=== PATIENT | male | born 1935 | race Caucasian/White ===

== ENCOUNTER 2024-07-03 04:47 | Inpatient (IN) | payer OTHER, SELFPAY ==
[2024-07-02 23:17] VITALS: BP 168/86
[2024-07-03] VITALS (10 sets, daily range): BP systolic 134–180; BP diastolic 71–99; BMI 22.8; BMI 22.5
[2024-07-03 00:13] LABS: % Basophils 0.7 % (0-2); % Eosinophils 3.2 % (0-6); % Immature Granulocytes 0.4 % (0-0.5); % Lymphocytes 14.4 % (20.5-51.1); % Monocytes 8.6 % (1.7-9.3); % Neutrophils 72.7 % (42.2-75.2); Absolute Basophils 0.1 10^3/uL (0-0.2); Absolute Eosinophils 0.3 10^3/uL (0-0.7); Absolute Lymphocytes 1.3 10^3/uL (1.2-3.4); Absolute Monocytes 0.8 10^3/uL (0.1-0.6); Absolute Neutrophils 6.7 10^3/uL (1.4-6.5); Hematocrit 34.1 % (39.0-52.0); Hemoglobin 11.9 g/dL (13.0-18.0); Mean Corp Hgb Conc. 34.9 g/dL (33.0-37.0); Mean Corpuscular Hgb 34.4 pg (27.0-31.0); Mean Corpuscular Volume 98.6 fL (80.0-94.0); Mean Platelet Volume 10.1 fL (7.4-10.4); Nucleated Red Blood Cells % 0 % (-); Platelet Count 146 10^3/uL (130-400); Red Blood Cell Count 3.46 10^6/uL (4.70-6.10); Red Cell Dist. Width 14.4 % (11.5-14.5); White Blood Cell Count 9.2 10^3/uL (4.8-10.8)
[2024-07-03] MEDS: DILAUDID 0.25 MG IV (00:19)
[2024-07-03 00:35] LABS: ALT (SGPT) 17 U/L (0-50); AST (SGOT) 27 U/L (17-59); Albumin 4.5 g/dl (3.5-5.0); Alkaline Phosphatase 67 U/L (38-126); Blood Urea Nitrogen 36 mg/dl (9-20); Calcium 9.4 mg/dl (8.4-10.2); Carbon Dioxide 27 mmol/L (22-30); Chloride 95 mmol/L (98-107); Estimated Creatinine Clearance 11 ml/min; Glucose 116 mg/dl (70-99); Potassium 4.7 mmol/L (3.5-5.1); Sodium 134 mmol/L (135-145); Total Bilirubin 0.7 mg/dl (0.2-1.3); Total Protein 7.5 g/dl (6.3-8.2); eGFR 11.53
[2024-07-03] MEDS: DILAUDID 0.5 MG IV (00:45)
--- NOTE | 2024-07-03 00:50 | ED.GENMED ---
History of Present Illness
<Jody Gonzalez PA-C - Last Filed: 07/03/24 04:29>
General
Chief Complaint: Abdominal Pain
Source: patient
Exam Limitations: none
Time Seen by Provider: 07/02/24 23:50
Nursing documentation reviewed up to this point in time: agreed with
History of Present Illness
History of Present Illness:
89 y/o M
with RLQ pain tender lump x 1.5 days
he has not had any nausea/vomiting/diarrhea, constipation
he has never had hernia before
has h/o afib on eliquis
ESRD on HD MWF
last dialyzed yesterday
no cp, sob
no h/o hernia
no previous abd surgery
Past History
<Jody Gonzalez PA-C - Last Filed: 07/03/24 04:29>
Past History
ED Past Medical History: GERD, HTN, Hypercholesterolemia, Psychiatric and Other (Vertigo)
ED Past Surgical History: Orthopedic and Tonsilectomy
Patient has exhibited threatening behavior?: No
PSI?: No
Social History
Tobacco: Non-smoker
Alcohol: Daily (Wine 1 glass)
Personal:
Living: assisted living
Family History
Family History: CAD
Review of Systems
<Jody Gonzalez PA-C - Last Filed: 07/03/24 04:29>
Review of Systems
Allergies reviewed?: Yes
All Other Systems: Not applicable
Phy Exam
<Jody Gonzalez PA-C - Last Filed: 07/03/24 04:29>
Physical Exam
Physical Exam:
GENERAL: Alert , in no apparent distress
EYE: pupils equal and reactive
NECK: Supple
ENT: o/p clr, mmm.
CARDIAC: Regular rate and rhythm .
LUNGS: Clear breath sounds bilaterally, no acute respiratory distress, no wheezes/rales/rhonchi
ABDOMEN: Mildly distended, firm tender mass/lump in the right lower quadrant feels consistent with a hernia, normal bowel sounds
NEUROLOGICAL: Alert and oriented, no focal neuro deficits
SKIN: Warm and dry, skin intact.
Right upper chest wall permacath
PSYCH: Normal and appropriate interaction.
Course
<Jody oGnzalez PA-C - Last Filed: 07/03/24 04:29>
Orders/Labs/Results
Orders:
Orders
07/02/24 23:19
CMP [Comprehensive Metabolic Panel] Urgent
Complete Blood Count/With Diff Urgent
07/03/24 00:16
HYDROmorphone [Dilaudid] 0.25 mg IV NOW STA
07/03/24 00:36
HYDROmorphone [Dilaudid] 0.5 mg .ROUTE .STK-MED ONE
07/03/24 00:43
CT Abd/Pel (IV only)-DH only Urgent
Comment:
Reason For Exam: RLQ pain with tender lump; dialysis; iv contrast
07/03/24 02:52
HYDROmorphone [Dilaudid] 0.5 mg IV NOW STA
07/03/24 03:19
NG Tube [GI tube insertion- Treatment] ONCE
Abnormal Lab Results
07/03/24
00:01
RBC 3.46 L 10^6/uL
(4.70-6.10)
Hgb 11.9 L g/dL
(13.0-18.0)
Hct 34.1 L %
(39.0-52.0)
MCV 98.6 H fL
(80.0-94.0)
MCH 34.4 H pg
(27.0-31.0)
Absolute Neuts (auto) 6.7 H 10^3/uL
(1.4-6.5)
Absolute Monos (auto) 0.8 H 10^3/uL
(0.1-0.6)
Lymphocytes % 14.4 L %
(20.5-51.1)
Sodium 134 L mmol/L
(135-145)
Chloride 95 L mmol/L
(98-107)
BUN 36 H mg/dl
(9-20)
Creatinine 4.6 H* mg/dL
(0.7-1.3)
Glucose 116 H mg/dl
(70-99)
07/03/24 00:01
07/03/24 00:01
Vital Signs
Initial and Last Documented VS:
Initial Vital Signs
Temp Pulse Resp BP Pulse Ox
36.6 C 72 22 168/86 98
07/02/24 23:17 07/02/24 23:17 07/02/24 23:17 07/02/24 23:17 07/02/24 23:17
Last Documented Vital Signs
Temp Pulse Resp BP Pulse Ox
36.6 C 76 10 180/96 98
07/02/24 23:17 07/03/24 01:30 07/03/24 01:30 07/03/24 00:42 07/03/24 02:45
<Esau Charles MD - Last Filed: 07/03/24 01:39>
Orders/Labs/Results
Orders:
Orders
07/02/24 23:19
CMP [Comprehensive Metabolic Panel] Urgent
Complete Blood Count/With Diff Urgent
07/03/24 00:16
HYDROmorphone [Dilaudid] 0.25 mg IV NOW STA
07/03/24 00:36
HYDROmorphone [Dilaudid] 0.5 mg .ROUTE .STK-MED ONE
07/03/24 00:43
CT Abd/Pel (IV only)-[facility] only Urgent
Comment:
Reason For Exam: RLQ pain with tender lump; dialysis; iv contrast
07/03/24 02:52
HYDROmorphone [Dilaudid] 0.5 mg IV NOW STA
07/03/24 03:19
NG Tube [GI tube insertion- Treatment] ONCE
Abnormal Lab Results
07/03/24
00:01
RBC 3.46 L 10^6/uL
(4.70-6.10)
Hgb 11.9 L g/dL
(13.0-18.0)
Hct 34.1 L %
(39.0-52.0)
MCV 98.6 H fL
(80.0-94.0)
MCH 34.4 H pg
(27.0-31.0)
Absolute Neuts (auto) 6.7 H 10^3/uL
(1.4-6.5)
Absolute Monos (auto) 0.8 H 10^3/uL
(0.1-0.6)
Lymphocytes % 14.4 L %
(20.5-51.1)
Sodium 134 L mmol/L
(135-145)
Chloride 95 L mmol/L
(98-107)
BUN 36 H mg/dl
(9-20)
Creatinine 4.6 H* mg/dL
(0.7-1.3)
Glucose 116 H mg/dl
(70-99)
07/03/24 00:01
07/03/24 00:01
Vital Signs
Initial and Last Documented VS:
Initial Vital Signs
Temp Pulse Resp BP Pulse Ox
36.6 C 72 22 168/86 98
07/02/24 23:17 07/02/24 23:17 07/02/24 23:17 07/02/24 23:17 07/02/24 23:17
Last Documented Vital Signs
Temp Pulse Resp BP Pulse Ox
36.6 C 76 10 180/96 98
07/02/24 23:17 07/03/24 01:30 07/03/24 01:30 07/03/24 00:42 07/03/24 02:45
<Christian Wagner, - Last Filed: 07/03/24 03:36>
Orders/Labs/Results
Orders:
Orders
07/02/24 23:19
CMP [Comprehensive Metabolic Panel] Urgent
Complete Blood Count/With Diff Urgent
07/03/24 00:16
HYDROmorphone [Dilaudid] 0.25 mg IV NOW STA
07/03/24 00:36
HYDROmorphone [Dilaudid] 0.5 mg .ROUTE .STK-MED ONE
07/03/24 00:43
CT Abd/Pel (IV only)-DH only Urgent
Comment:
Reason For Exam: RLQ pain with tender lump; dialysis; iv contrast
07/03/24 02:52
HYDROmorphone [Dilaudid] 0.5 mg IV NOW STA
07/03/24 03:19
NG Tube [GI tube insertion- Treatment] ONCE
Abnormal Lab Results
07/03/24
00:01
RBC 3.46 L 10^6/uL
(4.70-6.10)
Hgb 11.9 L g/dL
(13.0-18.0)
Hct 34.1 L %
(39.0-52.0)
MCV 98.6 H fL
(80.0-94.0)
MCH 34.4 H pg
(27.0-31.0)
Absolute Neuts (auto) 6.7 H 10^3/uL
(1.4-6.5)
Absolute Monos (auto) 0.8 H 10^3/uL
(0.1-0.6)
Lymphocytes % 14.4 L %
(20.5-51.1)
Sodium 134 L mmol/L
(135-145)
Chloride 95 L mmol/L
(98-107)
BUN 36 H mg/dl
(9-20)
Creatinine 4.6 H* mg/dL
(0.7-1.3)
Glucose 116 H mg/dl
(70-99)
07/03/24 00:01
07/03/24 00:01
Vital Signs
Initial and Last Documented VS:
Initial Vital Signs
Temp Pulse Resp BP Pulse Ox
36.6 C 72 22 168/86 98
07/02/24 23:17 07/02/24 23:17 07/02/24 23:17 07/02/24 23:17 07/02/24 23:17
Last Documented Vital Signs
Temp Pulse Resp BP Pulse Ox
36.6 C 76 10 180/96 98
07/02/24 23:17 07/03/24 01:30 07/03/24 01:30 07/03/24 00:42 07/03/24 02:45
Bettylt;Jody Gonzalez PA-C - Last Filed: 07/03/24 04:29>
MDM/Problems Addressed
Differential Diagnosis Includes:
incarceratied hernia, mass, bowel obstruction
MDM/Problems Addressed:
89 y/o M
from [facility]
here iwth rlq pain and mass noticed yesterday
still able to eat/drink
no nausea/vomtiing
pain worse with palptiation
ESRD on HD m/w/f
just got dialyzed thursday
there is a palpable tende rmass in RLQ and distension of the adomen
i attempted reduction x 2 with trendelenburg and after pain meds and was unsuccessful
ct shows bowel contained hernia may be strangulate dwith SBO
[address] wagner did successfully reduce th ehernia
dr hendrix aware
hold off on NGT
admith hospitalist
daughter who is POA is aware
<Jody Gonzalez PA-C - Last Filed: 07/03/24 04:29>
*Critical Care Note
Total Time (30-74mins, 75-104mins- exclusive of procedures): Not Applicable
<Christian Wagner DO - Last Filed: 07/03/24 03:36>
Update Note
Update Note:
Patient seen and examined by me. CT revealed hernia. On my assessment was able to reduce the patient's hernia. Patient then states he feels better. Now resting in a relaxed position. Continue to monitor
ED Attending Note
<Jody Gonzalez PA-C - Last Filed: 07/03/24 04:29>
-
Portions of this chart may have been created with voice recognition software.� Occasional wrong word or��sound alike� substitutions may have occurred due to the inherent limitations of voice recognition software.
<Esau Charles MD - Last Filed: 07/03/24 01:39>
ED Attending Note
Patient seen and examined by attending physician: Yes
I performed the substantive portion of visit, reviewed & personally made and approve the management plan that is documented in note by myself or QIAN.: Yes
ED Attending Note:
Painful mass/bulge right lower quadrant for 36 hours. Some nausea.
On exam tender mass right lower quadrant. Palpates like this likely is a hernia. No respiratory distress. Warm and dry. Perfusing well. Unable to reduce. CT pending.
Discharge Plan
Departure
Patient Disposition: Admit
Date of Disposition: 07/03/24
Time of Disposition: 03:37
Admit to: Med/Surg
Presentation/result/management discussed w/ accepting MD/DO: Hospitalist
Patient with high blood pressure during this ER visit?: No
Condition: Fair
Covid-19: Not Applicable
Discharge Problem:
Abdominal hernia, Small bowel obstruction
Prescriptions:
No Action
albuterol sulfate 2.5 mg /3 mL (0.083 %) Solution For Nebulization
2.5 mg INHALATION Q6H PRN (Reason: SOB)
sennosides-docusate sodium [Colace 2-In-1] 8.6-50 mg Tablet
2 tab-cap PO BID
Foltx 2.5-25-1 mg Tablet
1 tab PO HS
nifedipine [Procardia XL] 60 mg Tablet Extended Release 24hr
60 mg PO DAILY
levetiracetam 250 mg Tablet
250 mg PO Q12H
labetalol 100 mg Tablet
100 mg PO BID
albuterol sulfate 90 mcg/actuation Hfa Aerosol Inhaler
2 puff INHALATION 4XD PRN (Reason: SOB)
cholecalciferol (vitamin D3) 25 mcg (1,000 unit) Tablet
25 mcg PO DAILY
esomeprazole magnesium 20 mg Tablet,Delayed Release (Dr/Ec)
20 mg PO QPM
apixaban 2.5 mg Tablet
2.5 mg PO BID
Referrals:
UNKNOWN - PT DOES,NOT KNOW [Family Provider] -
Interventions
Interventions:
*Risk Screen - Suicide Last Done: 07/02/24 23:17
*General Assessment Last Done: 07/03/24 00:24
*Neglect/Abuse Screening Last Done: 07/02/24 23:17
*ED- Fall Risk Assessment Last Done: 07/03/24 00:24
*ED COVID-19 Vaccine History Last Done: 07/03/24 00:24
BV-Ckgxrj-Hdmsrvxoob Assessment Last Done: 07/03/24 02:45
Discharge Date and Time
Print Language: SOUTH AFR[place]
--- NOTE | 2024-07-03 04:30 | HPS.HSE ---
Family Physician
-
Family Physician: NOT KNOW UNKNOWN - PT DOES
Chief Complaint
-
Abd pain
History of Present Illness
Patient is an 89y M with PMH significant for ESRD on HD, GERD and hypertension who presents to ED complaining of abdominal pain. Patient states that he first noted the pain 24 hours ago and it was mild at that time. It has steadily increased in
the interim and was quite severe this evening prompting evaluation in the ED. Patient reports some nausea and 'belching' but no emesis. He had a normal BM yesterday AM but admits his bowels have been 'slow' recently. He denies any prior h/o
similar symptoms.
In the ED, patient was noted to have evidence of SBO due to R abdominal / Spigelian hernia with contained small bowel. This was successfully reduced in the ED after the CT scan and patient feels clinically improved.
Medical History
Past Medical History
Past Medical History: Reports Other
Additional Past Medical History:
ESRD on HD (M-W-F)
Hypertension
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
Paroxysmal Atrial Fibrillation
Past Surgical History: Reports Other
Additional Past Surgical History:
R IJ Tunneled HD Catheter
Right Knee Arthroscopy
T&A
Social History
Tobacco: Non-smoker
Alcohol: None
Drug: None
Living: Halfway
Family History
Family History: Not pertinent
Allergies / Home Medications
Allergies reflects when Allergies were last updated in [employer].
Home Medications with original date entered in [employer]
Allergy/Medication List:
Allergies
Allergy/AdvReac Type Severity Reaction Status Date / Time
escitalopram Allergy Unknown Verified 07/02/24 23:19
loratadine Allergy Unknown Verified 07/02/24 23:19
omeprazole Allergy Unknown Verified 07/02/24 23:19
pollen extracts Allergy Nasal Verified 07/02/24 23:19
Congestion
sertraline Allergy Unknown Verified 07/02/24 23:19
simvastatin Allergy Unknown Verified 07/02/24 23:19
terazosin Allergy Unknown Verified 07/02/24 23:19
venlafaxine [From Effexor] Allergy Unknown Verified 07/02/24 23:19
Home Medications
albuterol sulfate 2.5 mg/3 mL (0.083 %) solution for nebulization 2.5 mg inhalation Q6H PRN SOB 07/03/24
albuterol sulfate 90 mcg/actuation aerosol inhaler 2 puff inhalation 4XD PRN SOB 07/03/24
apixaban 2.5 mg tablet 2.5 mg PO BID 07/03/24
cholecalciferol (vitamin D3) 25 mcg (1,000 unit) tablet 25 mcg PO DAILY 07/03/24
esomeprazole magnesium 20 mg tablet,delayed release 20 mg PO QPM 07/03/24
folic acid-vit B6-vit B12 2.5 mg-25 mg-1 mg tablet 1 tab PO HS 07/03/24
labetalol 100 mg tablet 100 mg PO BID 07/03/24
levetiracetam 250 mg tablet 250 mg PO Q12H 07/03/24
nifedipine 60 mg tablet,extended release 24 hr (Procardia XL) 60 mg PO DAILY 07/03/24
sennosides 8.6 mg-docusate sodium 50 mg tablet (Colace 2-In-1) 2 tab-cap PO BID 07/03/24
Review of Systems
-
History Source: Patient
A 12 point ROS was completed and negative except as noted: Yes
Constitutional: Denies Fever or Chills
Respiratory: Denies Cough or Trouble Breathing
Cardiac: Denies Chest Pain or Palpitations
Abdomen/GI: Reports Abdominal Pain, Nausea and Constipated; Denies Vomiting, Diarrhea, Bloody Stools or Black Stools
: Denies Flank Pain or Bleeding
Musculoskeletal: Denies Joint Pain or Edema
Neurological: Denies Dizzy or Headache
Physical Exam
Vital Signs
Vital Signs
Temp Pulse Resp BP Pulse Ox
97.8 F 76 10 180/96 98
07/02/24 23:17 07/03/24 01:30 07/03/24 01:30 07/03/24 00:42 07/03/24 02:45
Physical Exam
General: Other (89y m in no acute distress.)
HEENT: Moist mucous membranes
Respiratory: Clear; No Wheezes, Rales or Rhonchi
Cardiac: S1/S2 and Irregular Rhythm; No Murmur
GI: Soft, Non Distended, Normal Bowel Sounds and Other (Mild R sided abdominal tenderness. No appreciable mass / lesion at present. Pos BS,)
Musculoskeletal: No Clubbing, No Cyanosis and No Edema
Neuro: AO x 3
Hematologic/Lymphatic: Other (R IJ HD cath intact. Surrounding area well-appearing.)
Laboratory Results
-
07/03/24 00:01
07/03/24 00:01
Laboratory Results
Total Bilirubin 0.7 mg/dl (0.2-1.3) 07/03/24 00:01
AST 27 U/L (17-59) 07/03/24 00:01
ALT 17 U/L (0-50) 07/03/24 00:01
Alkaline Phosphatase 67 U/L (38-126) 07/03/24 00:01
Impression/Plan
-
A/P: Patient is an 89y M with PMH significant for ESRD on HD, GERD and hypertension who presents to ED for evaluation of abdominal pain x 24 + hours.
Right Abdominal / Spigelian Hernia
SBO secondary to the above
- Admit for further evaluation and treatment.
- Pain / nausea improved after reduction in the ED.
- Monitor overnight for any new / recurrent symptoms.
- Surgery evaluation in the AM for additional recommendations.
- Continue supportive care, pain control / antiemetics, etc if needed.
- Consider NG decompression if recurrent pain, emesis, etc.
ESRD on HD
- Stable. Had usual HD session on Thursday with no issues.
- Next HD due Tuesday 07/04.
- Consult Nephrology if patient remains hospitalized at that time.
Paroxysmal Atrial Fibrillation
- Stable. Hold Eliquis acutely in the event that patient requires any intervention.
Benign Hypertension
- BP moderate elevated in the ED - likely in part due to pain.
- Continue usual home medications with holding parameters.
- Adjust as needed.
- HD per usual schedule.
GERD / Mueller's Esophagus
- Stable. Continue daily PPI.
Seizure Disorder
- Stable. Continue current Keppra dose without changes.
DVT Prophylaxis: SCDs
Code Status: DNR
--- NOTE | 2024-07-03 07:02 | W.PN.HOSP.TC ---
Today's Communication/Plan
-
See plan
Assessment / Plan
Assessment / Plan
Physical Exam
General: Not in acute distress
HEENT: Moist mucous membranes
Respiratory: Clear to Auscultation Bilaterally
Cardiac: S1/S2 and Irregular Rhythm
GI: Soft, Non Distended, Normal Bowel Sounds and Other (Mild right-sided abdominal tenderness. Positive bowel sounds.)
Musculoskeletal: No Cyanosis and No Edema
Neuro: Alert. Awake.
Hematologic/Lymphatic: Other (R IJ HD cath intact. Surrounding area well-appearing.)
Assessment/Plan
Patient is an 89y M with PMH significant for ESRD on HD, GERD and hypertension who presents to ED for evaluation of abdominal pain x 24 + hours.
Right Abdominal / Spigelian Hernia
SBO secondary to the above
- Pain / nausea improved after reduction in the ED.
- Monitor overnight for any new / recurrent symptoms.
- Surgery evaluation for additional recommendations.
- Continue supportive care, pain control / antiemetics, etc if needed.
- Consider NG decompression if recurrent pain, emesis, etc.
ESRD on HD
- Stable. Had usual HD session on Thursday07/01/24 with no issues.
- Next HD due Thursday07/04/24.
- Consult Nephrology if patient remains hospitalized at that time.
Paroxysmal Atrial Fibrillation
- Stable. Hold Eliquis acutely in the event that patient requires any intervention.
Benign Hypertension
- BP moderate elevated in the ED - likely in part due to pain.
- Continue usual home medications with holding parameters.
- Adjust as needed.
- HD per usual schedule.
GERD / Mueller's Esophagus
- Stable. Continue daily PPI.
Seizure Disorder
- Stable. Continue current Keppra dose without changes.
DVT Prophylaxis: SCDs. Subq Heparin while Apixaban is being held.
Code Status: DNR
Anticipated Discharge: 24 - 48 hours
Subjective/Interval History
-
Date of Service: July 03, 2024
Patient was seen and examined. He mentioned that he was feeling great and denied any pain.
Objective Data
-
Labs:
Laboratory Results
07/03/24
00:01
WBC 9.2
Hgb 11.9 L
Hct 34.1 L
Plt Count 146
Sodium 134 L
Potassium 4.7
Chloride 95 L
Carbon Dioxide 27
BUN 36 H
Creatinine 4.6 H*
Glucose 116 H
Calcium 9.4
Total Bilirubin 0.7
AST 27
ALT 17
Alkaline Phosphatase 67
Vital Signs:
Vital Signs
Temp Pulse Resp BP Pulse Ox
97.4 F 71 18 149/86 98
07/03/24 06:30 07/03/24 06:30 07/03/24 06:30 07/03/24 06:30 07/03/24 06:30
[2024-07-03] MEDS: TRANDATE 100 MG PO ×2 (08:36→19:57)
[2024-07-03] MEDS: KEPPRA 250 MG PO ×2 (08:36→19:57)
[2024-07-03] MEDS: PROCARDIA XL (EXTENDED RELEASE) 60 MG PO (08:36)
[2024-07-03] MEDS: PROTONIX 40 MG PO (08:36)
[2024-07-03] MEDS: VITAMIN D3 (cholecalciferol) 25 MCG PO (08:36)
[2024-07-03] MEDS: VENTOLIN NEBULES 2.5 MG INH ×3 (08:55→20:32)
--- NOTE | 2024-07-03 10:57 | CON.GS ---
Addendum entered and electronically signed by Dejan Benitez MD 07/03/24 14:49:
I saw and examined the patient.
The Supervisor Char House's note was reviewed and I agree with the note.
Comment: Improved from last night. RLQ hernia soft and mildly ttp. Alma cld, ADAT to LRD. Advised he needas a bowel regimen. start miralax daily and continue on dc. F/U in the office with Dr benitez to discuss hernia repair
Original Note:
Consultation
-
Date/Time Consultation Requested: 07/03/24614
Requesting Provider: Miles
Performing Provider: Kecia Benitez
Medical History
-
Chief Complaint: abdominal pain
History of Present Illness:
Mr Lux is an 89 yo male with a h/o ESRD on HD, PAF on Eliquis (LD 07/02), and hiatal hernia/GERD who presented through the ED last night with abdominal pain to the right side for the past few days. Proceeding this, he notes he was quite
constipated and was straining to pass hard stools. The pain gradually increased with belching and nausea. He denies vomiting. He presented for evaluation given ongoing pain. On exam, there is a right spigelian hernia present which is small, soft and
reducible although splitter tender. He denies pain, nausea or belching. He has been passing flatus.
Past Medical History
Past Medical History: Arrhythmias (PAF), GERD (salgado's, hiatal hernia) and Renal Failure (ESRD on HD via right IJ tunneled port)
Past Surgical History: Orthopedic (right knee arthroscopy) and Tonsilectomy
Social History
Tobacco: Non-Smoker
Alcohol: None
Living: [facility]
Family History
Family History: Reviewed & Not Pertinent
Allergies / Home Medications
Allergy/AdvReac Type Severity Reaction Status Date / Time
escitalopram Allergy Unknown Verified 07/02/24 23:19
loratadine Allergy Unknown Verified 07/02/24 23:19
omeprazole Allergy Unknown Verified 07/02/24 23:19
pollen extracts Allergy Nasal Verified 07/02/24 23:19
Congestion
sertraline Allergy Unknown Verified 07/02/24 23:19
simvastatin Allergy Unknown Verified 07/02/24 23:19
terazosin Allergy Unknown Verified 07/02/24 23:19
venlafaxine [From Effexor] Allergy Unknown Verified 07/02/24 23:19
�Medication �Instructions �Recorded �Confirmed �Type
albuterol sulfate 2.5 mg/3 mL 2.5 mg inhalation Q6H PRN SOB 07/03/24 07/03/24 History
(0.083 %) solution for nebulization
albuterol sulfate 90 mcg/actuation 2 puff inhalation 4XD PRN SOB 07/03/24 07/03/24 History
aerosol inhaler
apixaban 2.5 mg tablet 2.5 mg PO BID 07/03/24 07/03/24 History
cholecalciferol (vitamin D3) 25 25 mcg PO DAILY 07/03/24 07/03/24 History
mcg (1,000 unit) tablet
esomeprazole magnesium 20 mg 20 mg PO QPM 07/03/24 07/03/24 History
tablet,delayed release
folic acid-vit B6-vit B12 2.5 1 tab PO HS 07/03/24 07/03/24 History
mg-25 mg-1 mg tablet
labetalol 100 mg tablet 100 mg PO BID 07/03/24 07/03/24 History
levetiracetam 250 mg tablet 250 mg PO Q12H 07/03/24 07/03/24 History
nifedipine 60 mg tablet,extended 60 mg PO DAILY 07/03/24 07/03/24 History
release 24 hr (Procardia XL)
sennosides 8.6 mg-docusate sodium 2 tab-cap PO BID 07/03/24 07/03/24 History
50 mg tablet (Colace 2-In-1)
Review of Systems
-
History Source: Patient
All other systems: Negative unless noted
A 10 point review of systems was completed, and was negative except as per HPI.
Physical Exam
Vital Signs
Temp Pulse Resp BP Pulse Ox
98.1 F 84 16 168/90 100
07/03/24 07:20 07/03/24 08:59 07/03/24 08:59 07/03/24 07:20 07/03/24 08:59
07/02/24 07/03/24 07/04/24
06:59 06:59 06:59
Actual Weight 70.987 kg
Body Mass Index (BMI) 22.5
Lab Results
07/03/24 00:01
07/03/24 00:01
WBC 9.2 10^3/uL (4.8-10.8) 07/03/24 00:01
Hgb 11.9 g/dL (13.0-18.0) L 07/03/24 00:01
Hct 34.1 % (39.0-52.0) L 07/03/24 00:01
Plt Count 146 10^3/uL (130-400) 07/03/24 00:01
Abs Immat Gran (auto) 0.0 10^3/uL (0-0.05) 07/03/24 00:01
Neutrophils % 72.7 % (42.2-75.2) 07/03/24 00:01
Physical Exam
General: Well Developed and Well Nourished
HEENT: Moist Mucous Membranes
Respiratory: Non Labored Respirations
GI: Soft, Non Distended and Other (right spigelian hernia which is reducible/soft but tender to deep palpation)
Skin: Warm and Dry
Neuro: Awake
Psych: Calm
Data Reviewed
-
CT Scan: Image Personally Visualized and interpreted, Report Reviewed by me, Discussed with Physician and Discussed with Patient
Labs: Labs Reviewed by me, Discussed with Physician and Discussed with Patient
Old Records: Reviewed
Assessment / Plan
-
Mr Lux is an 89 yo male with a h/o ESRD on HD, PAF on Eliquis (LD 07/02), and hiatal hernia/GERD who presented through the ED last night with progressing abdominal discomfort with belching for the past 2 days. Straining with BM's prior to this
event with new spigelian hernia present. It was able to be reduced in the ED with relief in symptoms and remains soft and reducible although still with some local tenderness to the site. Afebrile, no leukocytosis. Passing flatus.
Plan:
No plans for emergent surgery at this time as hernia was able to be reduced, will follow for continued improvement
Tentative outpatient surgery after recovery from this acute event, although if symptoms recur may need surgery this admission
Start clears and advance to fulls tonight, LRD in AM if tolerating
Bowel regimen to prevent further straining
Continue to hold Eliquis
Will follow
--- NOTE | 2024-07-03 18:15 | PTCARENOTE ---
Patient OOB to chair with assist. Patient tolerated full liquid meal. No c/o pain at present, mild tenderness in abdomen.
[2024-07-03] MEDS: HEPARIN 5000 UNITS SC (19:58)
[2024-07-04] MEDS: VENTOLIN NEBULES 2.5 MG INH ×4 (01:21→19:38)
[2024-07-04 05:33] VITALS: BMI 22.7
--- NOTE | 2024-07-04 06:42 | PTCARENOTE ---
Pt slept well overnight. No issues to report. Pt denies any complaints of abd pain. Pt using urinal as needed. Bed alarm in place. Will continue to monitor.
--- NOTE | 2024-07-04 07:25 | W.PN.HOSP.TC ---
Today's Communication/Plan
-
Surgery on Thursday07/06/24
See plan
Assessment / Plan
Assessment / Plan
Physical Exam
General: Not in acute distress
HEENT: Moist mucous membranes
Respiratory: Clear to Auscultation Bilaterally
Cardiac: S1/S2 and Irregular Rhythm
GI: Soft, Non Distended, Normal Bowel Sounds and Other (Mild right-sided abdominal tenderness. Positive bowel sounds.)
Musculoskeletal: No Cyanosis and No Edema
Neuro: Alert. Awake.
Hematologic/Lymphatic: Other (R IJ HD cath intact. Surrounding area well-appearing.)
Assessment/Plan
Patient is an 89y M with PMH significant for ESRD on HD, GERD and hypertension who presents to ED for evaluation of abdominal pain x 24 + hours.
Right Abdominal / Spigelian Hernia
SBO secondary to the above
- Pain / nausea improved after reduction in the ED.
- Surgery evaluation for additional recommendations.
- Consider NG decompression if recurrent pain, emesis, etc.
- Per Dr. Benitez, patient is added on for surgery on 07/06/24 for hernia repair due to expected difficulty with follow up.
- Okay for Low Residue Diet now, discussed this with Dr. Benitez
- NPO after midnight 07/05-07/06
- Dr. Benitez (surgeon) requested that I consult cardiology for risk stratification for surgery -- cardiology consulted
ESRD on HD
- Stable. Had usual HD session on Thursday07/01/24 with no issues.
- Next HD due Thursday07/04/24.
- Consulted Nephrology for dialysis - dialysis today and first thing in the morning on Thursday07/06/24 prior to surgery
Paroxysmal Atrial Fibrillation
- Stable. Hold Eliquis acutely in the event that patient requires any intervention.
- Cardiology consulted as per surgeon's request as above
Benign Hypertension
- BP moderate elevated in the ED - likely in part due to pain.
- Continue usual home medications with holding parameters.
- Adjust as needed.
- HD per usual schedule.
GERD / Mueller's Esophagus
- Stable. Continue daily PPI.
Seizure Disorder
- Stable. Continue current Keppra dose without changes.
DVT Prophylaxis: SCDs. Subq Heparin while Apixaban is being held.
Code Status: DNR
Anticipated Discharge: > 48 hours
Subjective/Interval History
-
Date of Service: July 04, 2024
Patient was seen and examined. He denied any symptoms or complaints.
Objective Data
-
Labs:
Laboratory Results
07/04/24
07:14
WBC Pending
Hgb Pending
Hct Pending
Plt Count Pending
Sodium Pending
Potassium Pending
Chloride Pending
Carbon Dioxide Pending
BUN Pending
Creatinine Pending
Glucose Pending
Calcium Pending
Vital Signs:
Vital Signs
Temp Pulse Resp BP Pulse Ox
97.8 F 85 18 159/86 94
07/03/24 22:32 07/04/24 01:24 07/04/24 01:24 07/03/24 22:32 07/04/24 01:24
I&O
07/03/24 07/04/24 07/05/24
06:59 06:59 06:59
Intake Total 1530 / 1530
Output Total 325 / 325
Balance 1205 / 1205
[2024-07-04 07:45] VITALS: BP 185/93
[2024-07-04] MEDS: TRANDATE 100 MG PO ×2 (08:12→20:10)
[2024-07-04] MEDS: PROCARDIA XL (EXTENDED RELEASE) 60 MG PO (08:12)
[2024-07-04] MEDS: VITAMIN D3 (cholecalciferol) 25 MCG PO (08:13)
[2024-07-04] MEDS: HEPARIN 5000 UNITS SC ×2 (08:13→20:10)
[2024-07-04] MEDS: KEPPRA 250 MG PO ×2 (08:13→20:10)
[2024-07-04] MEDS: PROTONIX 40 MG PO (08:13)
[2024-07-04] MEDS: MIRALAX 17 GRAMS PO (08:17)
[2024-07-04 08:27] LABS: Hematocrit 30.4 % (39.0-52.0); Hemoglobin 10.4 g/dL (13.0-18.0); Mean Corp Hgb Conc. 34.2 g/dL (33.0-37.0); Mean Corpuscular Hgb 34.1 pg (27.0-31.0); Mean Corpuscular Volume 99.7 fL (80.0-94.0); Mean Platelet Volume 10.4 fL (7.4-10.4); Platelet Count 153 10^3/uL (130-400); Red Blood Cell Count 3.05 10^6/uL (4.70-6.10); Red Cell Dist. Width 14.6 % (11.5-14.5); White Blood Cell Count 7.9 10^3/uL (4.8-10.8)
[2024-07-04 09:11] LABS: Blood Urea Nitrogen 43 mg/dl (9-20); Calcium 8.7 mg/dl (8.4-10.2); Chloride 95 mmol/L (98-107); Estimated Creatinine Clearance 9 ml/min; Potassium 4.6 mmol/L (3.5-5.1); Sodium 130 mmol/L (135-145); eGFR 8.73
[2024-07-04 09:19] LABS: Carbon Dioxide 23 mmol/L (22-30); Glucose 70 mg/dl (70-99)
--- NOTE | 2024-07-04 10:36 | W.PN.GS2 ---
Today's Communication / Plan
-
OR for hernia repair today vs tomorrow
Assessment / Plan
-
89 yo male with a h/o ESRD on HD, PAF on Eliquis (LD 07/02), and hiatal hernia/GERD who presented for incarcerated right spigelian hernia with resultant SBO. Hernia able to be reduced, tolerating FLD yesterday.
AFVSS
Not yet passing flatus/stool
High risk of recurrence
--NPO for tentative OR today vs tomorrow pending coordination with HD
--Continue to hold Eliquis
--Analgesics prn
Subjective Data
-
Date of Service: July 04, 2024
Patient seen and examined at bedside. Denies passage of flatus or stools. Denies n/v. Denies pain
Objective Data
-
Intake and Output
07/03/24 07/04/24 07/05/24
06:59 06:59 06:59
Intake Total 1530 / 1530
Output Total 325 / 325
Balance 1205 / 1205
Intake:
Oral fluids 1530 / 1530
Output:
Urine, Voided 325 / 325
Vital Signs
Temp Pulse Resp BP Pulse Ox
98.1 F 82 16 185/93 95
07/04/24 07:45 07/04/24 08:32 07/04/24 08:32 07/04/24 08:12 07/04/24 08:32
Lab Results
07/04/24 07:14
07/04/24 07:14
Calcium 8.7 mg/dl (8.4-10.2) 07/04/24 07:14
Total Bilirubin 0.7 mg/dl (0.2-1.3) 07/03/24 00:01
AST 27 U/L (17-59) 07/03/24 00:01
ALT 17 U/L (0-50) 07/03/24 00:01
Alkaline Phosphatase 67 U/L (38-126) 07/03/24 00:01
Total Protein 7.5 g/dl (6.3-8.2) 07/03/24 00:01
Albumin 4.5 g/dl (3.5-5.0) 07/03/24 00:01
Physical Exam
-
NAD
ABD soft, nt, nd
[2024-07-04 11:49] LABS: APTT 33.4 Sec (23.4-35.0); INR 1.05
--- NOTE | 2024-07-04 12:44 | PTCARENOTE ---
preop CHG wipes completed x2
--- NOTE | 2024-07-04 12:58 | CON.CAR ---
Addendum entered and electronically signed by Lenin Josue MD 07/04/24 17:03:
I saw and examined the patient.
The CLOTHES MODEL's note was reviewed and I agree with the note.
Comment: We used our evaluation and our estimation of inputs for the NSQIP risk calculator. He is at elevated cardiac risk (1.5% risk) but that is not prohibitive risk for hernia surgery repair. His serious complication risk is much higher at
14.5%. For a 2-3 day hold of Eliquis we do not bridge Eliquis as an outpatient. I would NOT USE IV HEPARIN post-operatively. I would await hemostasis and hope to begin Eliquis 48 hours later. No role for cardiac testing at this time. No need to
further optimize cardiac status. OK to proceed to OR at high cardiac and overall risk.
Original Note:
Consultation
Consultation Request
Date/Time Consultation Requested: 07/04/2024 12:15
Date/Time Consultation Performed: 07/04/2024 13:00
Requesting Provider: Dr. Torres
Performing Provider: BOB Jules for Dr. Josue
Reason for Consultation: Cardiac risk assessment
Medical History
-
Chief Complaint: Abdominal pain
History of Present Illness:
Mr. Shilpa Lux is an 89-year-old male (known to Dr. Josue, his primary terminal operations manager), with permanent atrial fibrillation (on apixaban), CVA (on imaging), hypertension, GERD/Mueller's esophagus, HLD, seizure disorder, and ESRD on HD who presented
to the emergency department with a chief complaint of abdominal pain. He endorsed associated nausea and belching without emesis. He had a CAT scan which showed small bowel obstruction with transition point in a right spigelian hernia. It was
reduced by surgery with improvement in his symptoms. The plan is to go to the OR on 07/06/2024 after hemodialysis. Cardiology was consulted for risk assessment. Mr. Lux stands and pivots to a wheelchair. He does not have any chest pain with
this nor shortness of breath. He has not ambulated in quite some time.
Past Medical History
Past Medical History: Arrhythmias (Permanent atrial fibrillation), CVA, GERD, HTN, Hypercholesterolemia, Renal Failure (CKD on HD) and Seizures
Past Surgical History: Orthopedic and Tonsilectomy
Social History
Tobacco: Non-Smoker
Alcohol: None
Drug: None
Living: Custodial
Employment: Retired
Family History
Family History: Reviewed & Not Pertinent
Allergies / Home Medications
Allergy/AdvReac Type Severity Reaction Status Date / Time
escitalopram Allergy Unknown Verified 07/02/24 23:19
loratadine Allergy Unknown Verified 07/02/24 23:19
omeprazole Allergy Unknown Verified 07/02/24 23:19
pollen extracts Allergy Nasal Verified 07/02/24 23:19
Congestion
sertraline Allergy Unknown Verified 07/02/24 23:19
simvastatin Allergy Unknown Verified 07/02/24 23:19
terazosin Allergy Unknown Verified 07/02/24 23:19
venlafaxine [From Effexor] Allergy Unknown Verified 07/02/24 23:19
�Medication �Instructions �Recorded �Confirmed �Type
albuterol sulfate 2.5 mg/3 mL 2.5 mg inhalation Q6H PRN SOB 07/03/24 07/03/24 History
(0.083 %) solution for nebulization
albuterol sulfate 90 mcg/actuation 2 puff inhalation 4XD PRN SOB 07/03/24 07/03/24 History
aerosol inhaler
apixaban 2.5 mg tablet 2.5 mg PO BID Blood Clot 07/03/24 07/03/24 History
Prevention/Tx
cholecalciferol (vitamin D3) 25 25 mcg PO DAILY High Cholesterol 07/03/24 07/03/24 History
mcg (1,000 unit) tablet
esomeprazole magnesium 20 mg 20 mg PO QPM Gastrointestinal Issue 07/03/24 07/03/24 History
tablet,delayed release
folic acid-vit B6-vit B12 2.5 1 tab PO HS Supplement 07/03/24 07/03/24 History
mg-25 mg-1 mg tablet
labetalol 100 mg tablet 100 mg PO BID Blood Pressure 07/03/24 07/03/24 History
levetiracetam 250 mg tablet 250 mg PO Q12H Neurological 07/03/24 07/03/24 History
Condition
nifedipine 60 mg tablet,extended 60 mg PO DAILY Heart 07/03/24 07/03/24 History
release 24 hr (Procardia XL) Disease/Condition
sennosides 8.6 mg-docusate sodium 2 tab-cap PO BID Constipation 07/03/24 07/03/24 History
50 mg tablet (Colace 2-In-1)
Review of Systems
-
History Source: Patient
All other systems: Negative unless noted
Constitutional: No Symptoms
EENT: No Symptoms
Respiratory: No Symptoms
Cardiac: No Symptoms
Abdomen/GI: No Symptoms
: No Symptoms
Musculoskeletal: No Symptoms
Skin: No Symptoms
Neurological: No Symptoms
Endocrine: No Symptoms
Hematologic/Lymphatic: No Symptoms
Physical Exam
Vital Signs
Temp Pulse Resp BP Pulse Ox
98.1 F 82 16 185/93 95
07/04/24 07:45 07/04/24 08:32 07/04/24 08:32 07/04/24 08:12 07/04/24 08:32
Lab Results
07/04/24 07:14
07/04/24 07:14
Physical Exam
General: Well Developed, Well Nourished, No Apparent Distress and Comfortable
HEENT: Normocephalic, Anicteric, Moist Mucous Membranes and Other (hard of hearing)
Respiratory: Clear and Non Labored Respirations
Cardiac: S1/S2, Irregular Rhythm and Peripheral Edema
Breast: Deferred by me
GI: Soft, Non Tender, Non Distended and Normal Bowel Sounds
Rectal: Deferred by Provider
Genito-urinary: No Costovertebral Tender
Musculoskeletal: No Clubbing and No Cyanosis
Skin: Warm and Dry
Neuro: AO x 3
Hematologic/Lymphatic: No Lymphadenopathy
Psych: Calm
Impression / Plan
-
I/P: 89M with with permanent atrial fibrillation (on apixaban), CVA (on imaging), hypertension, GERD/Mueller's esophagus, HLD, seizure disorder, and ESRD on HD who presented to the emergency department with a chief complaint of abdominal pain
Outpatient terminal operations manager: Dr. Josue
Cardiac risk assessment
-EKG ordered
-Echocardiogram
-Not on telemetry for review
-Denies CP and shortness of breath, non ambulatory
Abdominal pain, in the setting of SBO
-Surgery following, for OR 07/06/[address] Benitez
Permanent atrial fibrillation
-Rate control with labetalol, no plans for rhythm control
-Oral Anticoagulation: Apixaban 2.5 mg twice daily (age 89, creatinine >1.5), on hold for surgical intervention, last dose 07/02/2024
-[id number]: score 5 (HTN, age 75 or more, CVA)
Hypertension
-BP above goal, per Nephrology given ESRD on HD
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
ESRD, on HD MWF, nephrology following
HLD, on rosuvastatin
Seizure disorder, on Keppra
Data Reviewed
-
Labs: Labs Reviewed by me
Old Records: Reviewed
--- NOTE | 2024-07-04 13:01 | W.CON.NEPH ---
Consultation
-
Date/Time Consultation Requested: 07/04/24 [id number]
Date/Time Consultation Performed: 07/05/24 1301
Requesting Provider: Tony Anderson
Performing Provider: Luz Vázquez
Reason for Consultation: ESRD
Medical History
-
Chief Complaint: abd pain
History of Present Illness:
89y M with PMH significant for ESRD on HD MWF at [place] [facility] through tunneled catheter, GERD on PPI, SZDO on Keppra, hypertension on Nifedipine, Labetalol, Afib on ELiquis who presents to ED complaining of abdominal pain on 07/03. In the ED,
patient was noted to have evidence of SBO due to R abdominal / Spigelian hernia with contained small bowel. This was successfully reduced in the ED after the CT scan and patient feels clinically improved. However today pt has not passed flatus or
stool and now plans to have possible surg. He offers no cp or sob. no n/v. no fever. Reports still making some urine. He has hard of hearing and lost batteries for hearing aid. History is limited for this reason.
Past Medical History
ESRD on HD (M-W-)
Hypertension
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
Paroxysmal Atrial Fibrillation
Past Surgical History: Other (R IJ Tunneled HD Catheter Right Knee Arthroscopy T&A)
Social History
Tobacco: Non-Smoker
Alcohol: None
Drug: None
Living: Alf
Family History
Family History: Not Pertinent
Allergies / Home Medications
Allergy/AdvReac Type Severity Reaction Status Date / Time
escitalopram Allergy Unknown Verified 07/02/24 23:19
loratadine Allergy Unknown Verified 07/02/24 23:19
omeprazole Allergy Unknown Verified 07/02/24 23:19
pollen extracts Allergy Nasal Verified 07/02/24 23:19
Congestion
sertraline Allergy Unknown Verified 07/02/24 23:19
simvastatin Allergy Unknown Verified 07/02/24 23:19
terazosin Allergy Unknown Verified 07/02/24 23:19
venlafaxine [From Effexor] Allergy Unknown Verified 07/02/24 23:19
�Medication �Instructions �Recorded �Confirmed �Type
albuterol sulfate 2.5 mg/3 mL 2.5 mg inhalation Q6H PRN SOB 07/03/24 07/03/24 History
(0.083 %) solution for nebulization
albuterol sulfate 90 mcg/actuation 2 puff inhalation 4XD PRN SOB 07/03/24 07/03/24 History
aerosol inhaler
apixaban 2.5 mg tablet 2.5 mg PO BID Blood Clot 07/03/24 07/03/24 History
Prevention/Tx
cholecalciferol (vitamin D3) 25 25 mcg PO DAILY High Cholesterol 07/03/24 07/03/24 History
mcg (1,000 unit) tablet
esomeprazole magnesium 20 mg 20 mg PO QPM Gastrointestinal Issue 07/03/24 07/03/24 History
tablet,delayed release
folic acid-vit B6-vit B12 2.5 1 tab PO HS Supplement 07/03/24 07/03/24 History
mg-25 mg-1 mg tablet
labetalol 100 mg tablet 100 mg PO BID Blood Pressure 07/03/24 07/03/24 History
levetiracetam 250 mg tablet 250 mg PO Q12H Neurological 07/03/24 07/03/24 History
Condition
nifedipine 60 mg tablet,extended 60 mg PO DAILY Heart 07/03/24 07/03/24 History
release 24 hr (Procardia XL) Disease/Condition
sennosides 8.6 mg-docusate sodium 2 tab-cap PO BID Constipation 07/03/24 07/03/24 History
50 mg tablet (Colace 2-In-1)
Review of Systems
-
All other systems: Negative unless noted
Physical Exam
Vital Signs
Vital Signs
Temp Pulse Resp BP Pulse Ox
98.1 F 82 16 185/93 97
07/04/24 07:45 07/04/24 08:32 07/04/24 08:32 07/04/24 08:12 07/04/24 13:51
Lab Results
WBC 7.9 10^3/uL (4.8-10.8) 07/04/24 07:14
RBC 3.05 10^6/uL (4.70-6.10) L 07/04/24 07:14
Hgb 10.4 g/dL (13.0-18.0) L 07/04/24 07:14
Hct 30.4 % (39.0-52.0) L 07/04/24 07:14
Plt Count 153 10^3/uL (130-400) 07/04/24 07:14
Sodium 130 mmol/L (135-145) L 07/04/24 07:14
Potassium 4.6 mmol/L (3.5-5.1) 07/04/24 07:14
Chloride 95 mmol/L (98-107) L 07/04/24 07:14
Carbon Dioxide 23 mmol/L (22-30) 07/04/24 07:14
BUN 43 mg/dl (9-20) H 07/04/24 07:14
Creatinine 5.8 mg/dL (0.7-1.3) H* 07/04/24 07:14
eGFR 8.73 07/04/24 07:14
Glucose 70 mg/dl (70-99) 07/04/24 07:14
Calcium 8.7 mg/dl (8.4-10.2) 07/04/24 07:14
Albumin 4.5 g/dl (3.5-5.0) 07/03/24 00:01
Physical Exam
General: Awake, Alert, Oriented, AOx3, No Distress and Nontoxic
HEENT: EOMI, Anicteric, Conjunctivae Clear and Facial Symmetry
Respiratory: Clear, Normal Excursion and Nonlabored Respirations
Cardiac: S1/S2 and Regular Rate/Rhythm
Breast: Deferred by me
Abdomen: Soft and Other (mild ditended)
Musculoskeletal: No Cyanosis and No Edema
Skin: No Rash
Neuro: Nonfocal/Grossly Intact
Psych: Appropriate
Vascular Access: CVC
Data Reviewed
-
Labs: Labs Reviewed by me and Discussed with Patient
Assessment/Plan
-
IMP:
Right Abdominal / Spigelian Hernia-s/p reduction in ER
SBO secondary to the above
ESRD on HD-MWF at [place] [facility] through CVC
Paroxysmal Atrial Fibrillation
Benign Hypertension
GERD / Mueller's Esophagus
Seizure Disorder
Plan:
A/w abd pain, spigelian hernia reduced in ER but no BM now
HD today per schedule
suspect Pt is nPO till surg can be done
ok for gentle IVF with NS
BPs are high cont CCB and BB, could increase BB dose-defer to cards
UF as tolerates to EDW
d/w pt and primary
--- NOTE | 2024-07-04 14:15 | W.PN.NEPH.HD ---
Assessment
-
pt seen during HD
vitals stable
UF as tolerates to EDW
CVC functions well
Progress Note - Hemodialysis
-
Date of Service: July 04, 2024
Duration: 30 minutes and 3 hours
Potassium Bath: 3
Calcium Bath: 2.5
Opti-Dialyzer: 160
Ultrafiltration: Other (1.5-2kg)
Blood Flow: 400
Dialysate Flow: 600
Heparin: no
EPO: no
[2024-07-04 15:00] VITALS: BP 154/54
--- NOTE | 2024-07-04 16:04 | CM ---
Patient seen at bedside.
IA completed
Spoke with daughter Clara
HD today - states receives dialysis at [facility] on
Resides at [facility] since January
PLOF: wheelchair, self propels
DME: Wheelchair, walker, shower chair
Denies VN/rehab in past
PCP: Claudia Dang ([facility])
PLAN: return to [facility]
[2024-07-04 23:30] VITALS: BP 158/83
[2024-07-05] MEDS: VENTOLIN NEBULES INH ×2 (01:54→07:55)
[2024-07-05 06:00] VITALS: BMI 21.9
[2024-07-05 07:23] VITALS: BP 158/84
[2024-07-05 07:40] LABS: Blood Urea Nitrogen 25 mg/dl (9-20); Calcium 8.7 mg/dl (8.4-10.2); Carbon Dioxide 26 mmol/L (22-30); Chloride 97 mmol/L (98-107); Estimated Creatinine Clearance 13 ml/min; Glucose 73 mg/dl (70-99); Potassium 4.5 mmol/L (3.5-5.1); Sodium 132 mmol/L (135-145)
[2024-07-05] MEDS: TRANDATE 100 MG PO ×2 (08:03→20:22)
[2024-07-05] MEDS: PROCARDIA XL (EXTENDED RELEASE) 60 MG PO (08:03)
[2024-07-05] MEDS: HEPARIN 5000 UNITS SC ×2 (08:03→20:26)
[2024-07-05] MEDS: VITAMIN D3 (cholecalciferol) 25 MCG PO (08:03)
[2024-07-05] MEDS: PROTONIX 40 MG PO (08:03)
[2024-07-05] MEDS: MIRALAX 17 GRAMS PO (08:03)
[2024-07-05] MEDS: KEPPRA 250 MG PO ×2 (08:04→20:22)
--- NOTE | 2024-07-05 08:22 | W.PN.HOSP.TC ---
Today's Communication/Plan
-
NPO after midnight for surgery tomorrow
Dialysis first thing tomorrow, followed bu surgery
See plan
Assessment / Plan
Assessment / Plan
Physical Exam
General: Not in acute distress
HEENT: Moist mucous membranes
Respiratory: Clear to Auscultation Bilaterally
Cardiac: S1/S2 and Irregular Rhythm
GI: Soft, Non Distended, Normal Bowel Sounds and Other (Mild right-sided abdominal tenderness. Positive bowel sounds.)
Musculoskeletal: No Cyanosis and No Edema
Neuro: Alert. Awake.
Hematologic/Lymphatic: Other (R IJ HD cath intact. Surrounding area well-appearing.)
Assessment/Plan
Patient is an 89y M with PMH significant for ESRD on HD, GERD and hypertension who presents to ED for evaluation of abdominal pain x 24 + hours.
Right Abdominal / Spigelian Hernia
SBO secondary to the above
- Pain / nausea improved after reduction in the ED.
- Surgery evaluation for additional recommendations.
- Consider NG decompression if recurrent pain, emesis, etc.
- Per Dr. Benitez, patient is added on for surgery on 07/06/24 for hernia repair due to expected difficulty with follow up.
- Okay for Low Residue Diet now, discussed this with Dr. Benitez
- NPO after midnight
- Dr. Benitez (surgeon) requested that I consult cardiology for risk stratification for surgery -- cardiology consulted -- risk elevated but surgery necessary
- Anticipate restart Eliquis 48 hrs post-op
ESRD on HD
- Stable. Had usual HD session on Thursday07/01/24 with no issues.
- Next HD due Thursday07/04/24.
- Consulted Nephrology for dialysis - dialysis today and first thing in the morning on Thursday07/06/24 prior to surgery
Permanent Atrial Fibrillation
- Stable. Hold Eliquis given surgery.
- Cardiology consulted as per surgeon's request as above
Benign Hypertension
- BP moderate elevated in the ED - likely in part due to pain.
- Continue usual home medications with holding parameters.
- Adjust as needed.
- HD per usual schedule.
GERD / Mueller's Esophagus
- Stable. Continue daily PPI.
Seizure Disorder
- Stable. Continue current Keppra dose without changes.
DVT Prophylaxis: SCDs. Continue subq Heparin while Apixaban is being held.
Code Status: DNR
Anticipated Discharge: > 48 hours
Subjective/Interval History
-
Date of Service: July 05, 2024
Patient was seen and examined. He denied any new symptoms or complaints.
Objective Data
-
Labs:
Laboratory Results
07/05/24
06:40
Sodium 132 L
Potassium 4.5
Chloride 97 L
Carbon Dioxide 26
BUN 25 H
Creatinine 3.8 H
Glucose 73
Calcium 8.7
Vital Signs:
Vital Signs
Temp Pulse Resp BP Pulse Ox
98.5 F 81 20 158/84 95
07/04/24 23:30 07/05/24 08:03 07/04/24 23:30 07/05/24 08:03 07/04/24 23:30
I&O
07/04/24 07/05/24 07/06/24
06:59 06:59 06:59
Intake Total 1530 / 1530 480 / 480
Output Total 325 / 325 300 / 300
Balance 1205 / 1205 180 / 180
--- NOTE | 2024-07-05 09:08 | PN.CDI ---
CDI
- -
CDI:
Physician Documentation Request
Admit Date: 07/03/24 04:47
Dear Doctor Brian,
Please review the following and provide your response in the progress notes.
The purpose of this query is to ensure the accuracy of the conditions reported for your patient.
Clinical Indicators:
Cardiology consult, 07/04
#Permanent atrial fibrillation
#...-Rate control with labetalol, no plans for rhythm control
#...-Oral Anticoagulation: Apixaban 2.5 mg twice daily (age 89, creatinine >1.5),
#...on hold for surgical intervention, last dose 07/02/2024
#...-[id number]: score 5 (HTN, age 75 or more, CVA)
PN, 07/04
#Paroxysmal Atrial Fibrillation
#...- Stable. Hold Eliquis acutely in the event that patient requires any intervention.
Please provide clarification regarding atrial fibrillation, such as:
Permanent atrial fibrillation - when a decision has been made to accept the presence of AF and there is no further attempt to restore or maintain sinus rhythm
Paroxysmal atrial fibrillation - terminates spontaneously or with intervention within 7 days of onset
Other - please specify
Use of terms such as suspected, likely, concern for, or probable (associated with a specific diagnosis that is being evaluated, monitored, or treated as if it exists) are acceptable and can be coded in the inpatient setting, when documented at the
time of discharge.
Thank you,
Alanna Melchor RN BSN CCDS
CDI Specialist
please contact via tiger text
Please use your independent medical judgment in providing your response.
--- NOTE | 2024-07-05 09:20 | PN.CDI ---
CDI
- -
CDI:
Physician Documentation Request
Admit Date: 07/03/24 04:47
Dear BOB Fuentes,
Please review the following and provide your response in the progress notes.
Clinical Indicators:
PN, 07/04
#...hiatal hernia/GERD who presented for incarcerated right spigelian hernia
#...with resultant SBO.
#...Hernia able to be reduced, tolerating FLD yesterday.
Based on the above and your clinical assessment, please clarify the specificity of the SBO:
Partial small bowel obstruction
Complete small bowel obstruction
Other( please specify)
Use of terms such as suspected, likely, concern for, or probable (associated with a specific diagnosis that is being evaluated, monitored, or treated as if it exists) are acceptable and can be coded in the inpatient setting, when documented at the
time of discharge.
Thank you,
Alanna Melchor RN BSN CCDS
CDI Specialist
please contact via tiger text
Please use your independent medical judgment in providing your response.
--- NOTE | 2024-07-05 10:20 | W.PN.UPDATE ---
Addendum entered and electronically signed by Dejan Benitez MD 07/05/24 11:20:
CDI query: suspected SBO, transient, unable to characterize further.
Addendum entered and electronically signed by Dejan Benitez MD 07/05/24 10:24:
NPO at midnight tonight
Original Note:
Update Note
Progress Note Update
Pt seen and evaluated at bedside. Eating and drinking well, no n/v. Belly soft, hernia soft, nt.
Seen by Cardiology and deemed high risk from overall and cardiac perspective. I discussed the risks with him. If the hernia is not repaired, he could develop strangulated bowel, as he was incarcerated on admission and difficult to reduce. There is
significant concern about recurrence which could precipitate a life threatening event, particularly as he is on eliquis. After discussion of risks, he would like to proceed with repair. He is added to the schedule for tomorrow afternoon. The plan is
for HD first thing in the morning. Anticipate restart eliquis 48 hrs post-op. OK for SC heparin ppx in the meantime and SCDs.
--- NOTE | 2024-07-05 11:15 | PN.CDI ---
CDI
- -
CDI:
Physician Documentation Request
Admit Date: 07/03/24 04:47
Dear Doctor Eli,
Please review the following and provide your response in the progress notes.
Clinical Indicators:
PN, 07/04
#...hiatal hernia/GERD who presented for incarcerated right spigelian hernia
#...with resultant SBO.
#...Hernia able to be reduced, tolerating FLD yesterday.
Based on the above and your clinical assessment, please clarify the specificity of the SBO:
Partial small bowel obstruction
Complete small bowel obstruction
Other( please specify)
Use of terms such as suspected, likely, concern for, or probable (associated with a specific diagnosis that is being evaluated, monitored, or treated as if it exists) are acceptable and can be coded in the inpatient setting, when documented at the
time of discharge.
Thank you,
Alanna Melchor RN BSN CCDS
CDI Specialist
please contact via tiger text
Please use your independent medical judgment in providing your response.
--- NOTE | 2024-07-05 11:23 | W.PN.CD ---
Addendum entered and electronically signed by Lenin Josue MD 07/06/24 10:35:
Echo and ekg are stable from prior.
Original Note:
Today's Communication / Plan
-
Will see again after surgery
Impression / Plan
-
Background: 89M with with permanent atrial fibrillation (on apixaban), CVA (on imaging), hypertension, GERD/Mueller's esophagus, HLD, seizure disorder, and ESRD on HD who presented to the emergency department with a chief complaint of abdominal
pain. Outpatient director of investigations: Dr. Josue
Cardiac risk assessment
- EKG, ordered
- Echo, ordered
- Elevated cardiac risk, high risk, 1.5%. Serious complication risk 14.5% (NSQI)
- No role for ischemic evaluation as no evidence of ACS
Abdominal pain, in the setting of SBO
- For surgical intervention on 07/06/[address] Benitez
Permanent atrial fibrillation
- Rate control with labetalol, no plans for rhythm control
- Oral Anticoagulation: Apixaban 2.5 mg twice daily (age 89, creatinine >1.5), on hold for surgical intervention, last dose 07/02/2024
- [id number]: score 5 (HTN, age 75 or more, CVA)
- No bridge for short hold of Eliquis
Hypertension
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
ESRD, on HD MWF, nephrology following
HLD, on rosuvastatin
Seizure disorder, on Keppra
Subjective: Denies CP or dyspnea
Physical Exam
Vital Signs/Labs
Vital Signs
Temp Pulse Resp BP Pulse Ox
98.5 F 81 17 158/84 93
07/05/24 07:23 07/05/24 08:03 07/05/24 07:23 07/05/24 08:03 07/05/24 07:23
07/04/24 07/05/24 07/06/24
06:59 06:59 06:59
Actual Weight 71.668 kg 69.309 kg
07/04/24 07:14
07/05/24 06:40
PT 14.0 Sec (11.4-14.6) 07/04/24 11:31
INR 1.05 07/04/24 11:31
APTT 33.4 Sec (23.4-35.0) 07/04/24 11:31
Physical Exam
Constitutional: No acute distress
EENT: Anicteric
Cardiovascular: Rhythm & rate is regular and Pedal edema is absent
Respiratory: Respiratory effort normal and Lungs clear to auscul.
GI: Soft and Distention absent
Hearing aids in. I reviewed elevated cardiac risk for surgery with pt
Data Reviewed
-
Date of Service: July 05, 2024
--- NOTE | 2024-07-05 13:42 | CM ---
Patient chart reviewed
OR tomorrow
Spoke with Odessa at [facility]
Referral added in careport to return to [facility]
will get back to if auth is needed.
PLAN: Return to [facility] once medically stable
[2024-07-05 15:06] VITALS: BP 139/84
--- NOTE | 2024-07-05 17:27 | W.PN.NEPH.PH ---
Today's Communication / Plan
-
HD tomorrow
Assessment/Plan
-
IMP:
Right Abdominal / Spigelian Hernia-s/p reduction in ER
SBO secondary to the above
ESRD on HD-MWF at [facility] through [facility]
Paroxysmal Atrial Fibrillation
Benign Hypertension
GERD / Mueller's Esophagus
Seizure Disorder
Plan:
A/w abd pain, spigelian hernia reduced in ER
HD tomorrow and then plan OR after
tolerating liquids
BPs are high cont CCB and BB
d/w pt
-
-
Date of Service: July 05, 2024
CC / HPI / ROS
-
Chief Complaint:
ESRD
History of Present Illness:
tolerated HD yesterday
bp stable, na 132
Review of Systems:
no cp or sob
no n/v or abd pain
no bm or flatus
Labs
-
Labs:
WBC 7.9 10^3/uL (4.8-10.8) 07/04/24 07:14
RBC 3.05 10^6/uL (4.70-6.10) L 07/04/24 07:14
Hgb 10.4 g/dL (13.0-18.0) L 07/04/24 07:14
Hct 30.4 % (39.0-52.0) L 07/04/24 07:14
Plt Count 153 10^3/uL (130-400) 07/04/24 07:14
Sodium 132 mmol/L (135-145) L 07/05/24 06:40
Potassium 4.5 mmol/L (3.5-5.1) 07/05/24 06:40
Chloride 97 mmol/L (98-107) L 07/05/24 06:40
Carbon Dioxide 26 mmol/L (22-30) 07/05/24 06:40
BUN 25 mg/dl (9-20) H 07/05/24 06:40
Creatinine 3.8 mg/dL (0.7-1.3) H 07/05/24 06:40
eGFR 14.50 07/05/24 06:40
Glucose 73 mg/dl (70-99) 07/05/24 06:40
Calcium 8.7 mg/dl (8.4-10.2) 07/05/24 06:40
Albumin 4.5 g/dl (3.5-5.0) 07/03/24 00:01
Physical Exam
-
Vital Signs:
Vital Signs
Temp Pulse Resp BP Pulse Ox
97.8 F 74 17 139/84 94
07/05/24 15:06 07/05/24 15:06 07/05/24 15:06 07/05/24 15:06 07/05/24 15:06
Cardiovascular:: Regular rate and rhythm
Respiratory:: Bilateral: CTA
Lung Excursion:: Normal
Abdomen:: Nontender and Soft
Extremity Edema:: None: Bilateral:
Edward Catheter: No
[2024-07-05 23:34] VITALS: BP 158/78
[2024-07-06] VITALS (10 sets, daily range): BP systolic 119–178; BP diastolic 57–103; BMI 21.8
--- NOTE | 2024-07-06 06:00 | PTCARENOTE ---
Examiner Rating Clerk providing chg cloth bath to Pt. Examiner Rating Clerk told RN to come to room. RN entered room to Pt with new Left upper arm skin tear. Pressure applied. Wound care provided. cleaned with saline, clean 4x4 applied, silicone border foam placed. incident report
placed.
--- NOTE | 2024-07-06 07:51 | W.PN.HOSP.TC ---
Today's Communication/Plan
-
Surgery today
See plan
Assessment / Plan
Assessment / Plan
Physical Exam
General: Not in acute distress
HEENT: Moist mucous membranes
Respiratory: Clear to Auscultation Bilaterally
Cardiac: S1/S2 and Irregular Rhythm
GI: Soft, Non Distended, Normal Bowel Sounds and Other (Mild right-sided abdominal tenderness. Positive bowel sounds.)
Musculoskeletal: No Cyanosis and No Edema
Neuro: Alert. Awake.
Hematologic/Lymphatic: Other (R IJ HD cath intact. Surrounding area well-appearing.)
Assessment/Plan
Patient is an 89y M with PMH significant for ESRD on HD, GERD and hypertension who presents to ED for evaluation of abdominal pain x 24 + hours.
Right Abdominal / Spigelian Hernia status post Robot-assisted laparoscopic repair right spigelian hernia (incarcerated ventral hernia) [Total hernia size 5cm] (rTAPP) on 07/06/24
SBO secondary to the above
- Pain / nausea improved after reduction in the ED.
- Surgery evaluation for additional recommendations.
- Consider NG decompression if recurrent pain, emesis, etc.
- Dr. Benitez (surgeon) requested that I consult cardiology for risk stratification for surgery -- cardiology consulted -- risk elevated but surgery necessary
- Anticipate restart Eliquis 48 hrs post-op -- plan to restart Eliquis Saturday 07/08
ESRD on HD
- Stable. Had usual HD session on Thursday07/01/24 with no issues.
- Next HD due Thursday07/04/24.
- Consulted Nephrology for dialysis
Permanent Atrial Fibrillation
- Stable. Hold Eliquis as above
- Cardiology consulted as per surgeon's request as above
Benign Hypertension
- BP moderate elevated in the ED - likely in part due to pain.
- Continue usual home medications with holding parameters.
- Adjust as needed.
- HD per usual schedule.
GERD / Mueller's Esophagus
- Stable. Continue daily PPI.
Seizure Disorder
- Stable. Continue current Keppra dose without changes.
DVT Prophylaxis: SCDs. Continue subq Heparin while Apixaban is being held.
Code Status: DNR
Anticipated Discharge: 24 - 48 hours
Subjective/Interval History
-
Date of Service: July 06, 2024
Patient was seen and examined. He was getting dialysis and denied any complaints.
Objective Data
-
Labs:
Laboratory Results
07/06/24 07/06/24
06:00 07:50
WBC Pending
Hgb Pending
Hct Pending
Plt Count Pending
Sodium Pending
Potassium Pending
Chloride Pending
Carbon Dioxide Pending
BUN Pending
Creatinine Pending
Glucose Pending
Calcium Pending
Vital Signs:
Vital Signs
Temp Pulse Resp BP Pulse Ox
97.6 F 83 18 158/78 97
07/05/24 23:34 07/05/24 23:34 07/05/24 23:34 07/05/24 23:34 07/05/24 23:34
I&O
07/05/24 07/06/24 07/07/24
06:59 06:59 06:59
Intake Total 480 / 480 0 / 1620
Output Total 300 / 300
Balance 180 / 180 0 / 1620
[2024-07-06 08:35] LABS: Hematocrit 27.9 % (39.0-52.0); Hemoglobin 9.8 g/dL (13.0-18.0); Mean Corp Hgb Conc. 35.1 g/dL (33.0-37.0); Mean Corpuscular Hgb 34.9 pg (27.0-31.0); Mean Corpuscular Volume 99.3 fL (80.0-94.0); Mean Platelet Volume 10.1 fL (7.4-10.4); Platelet Count 163 10^3/uL (130-400); Red Blood Cell Count 2.81 10^6/uL (4.70-6.10); Red Cell Dist. Width 14.6 % (11.5-14.5); White Blood Cell Count 8.5 10^3/uL (4.8-10.8)
--- NOTE | 2024-07-06 08:42 | CM ---
Reviewed the chart notes. Per note, HD today then to OR later in the day for hernia repair. CM continues to be available to patient/family and is monitoring medical plan for needs at discharge.
Plan: Discharge back to [facility] when medically stable.
[2024-07-06 09:25] LABS: Blood Urea Nitrogen 36 mg/dl (9-20); Calcium 8.9 mg/dl (8.4-10.2); Carbon Dioxide 25 mmol/L (22-30); Chloride 97 mmol/L (98-107); Estimated Creatinine Clearance 9 ml/min; Glucose 99 mg/dl (70-99); Potassium 4.3 mmol/L (3.5-5.1); Sodium 133 mmol/L (135-145); eGFR 9.72
[2024-07-06] MEDS: HEPARIN 5000 UNITS SC ×2 (09:49→19:52)
--- NOTE | 2024-07-06 11:40 | WOUNDNOTE ---
LIZ RN note: Patient admitted with abdominal hernia and small bowel obstruction.
See H&P for complete history.
PMH: Patient is an 89y M with PMH significant for ESRD on HD, GERD and hypertension who presents to ED complaining of abdominal pain.
Wound Location and type/assessment: Patient with new skin tear on L arm, bruise with linear skin tear, bleeds easily. Both arms with bruising and fragile skin. Patient at risk for future skin tears due to comorbidities. Heels are intact, blanchable
red but slightly boggy. Unable to turn patient due to being on dialysis. Nurse Evelin confirmed sacrum is intact. Gets oob to chair, amb. with assist.
Appetite: NPO for surgery today
Pressure redistribution devices in place: Accumax, turning schedule. Pillow under calves.
Plan: Adaptic and dry dressing applied to L arm. Foam adhesives applied to heels and pillow placed under calves.
Will confirm orders with hospitalist and updated nurse.
Updated care plan and will follow as needed.
Note to case management of equipment requested for discharge: None.
--- NOTE | 2024-07-06 11:52 | WOUNDNOTE ---
LEFT UPPER ARM
[2024-07-06] MEDS: MIRALAX PO (11:54)
[2024-07-06] MEDS: PROTONIX 40 MG PO (12:00)
[2024-07-06] MEDS: PROCARDIA XL (EXTENDED RELEASE) 60 MG PO (12:00)
[2024-07-06] MEDS: VITAMIN D3 (cholecalciferol) 25 MCG PO (12:01)
[2024-07-06] MEDS: TRANDATE 100 MG PO ×2 (12:01→19:52)
[2024-07-06] MEDS: KEPPRA 250 MG PO ×2 (12:01→19:52)
--- NOTE | 2024-07-06 12:07 | PTCARENOTE ---
Pt finished HD, 2 kgs removed. Oral meds given with sip of water. Pt scheduled for OR at 1330.
--- NOTE | 2024-07-06 13:32 | W.PN.NEPH.HD ---
Assessment
-
Seen on dialysis earlier tolerated treatment pending OR
Progress Note - Hemodialysis
-
Date of Service: July 06, 2024
Duration: 30 minutes and 3 hours
Potassium Bath: 3
Calcium Bath: 2.5
Opti-Dialyzer: 160
Ultrafiltration: Other (1.5-2kg)
Blood Flow: 400
Dialysate Flow: 600
Heparin: no
EPO: no
[2024-07-06] MEDS: ANCEF 10 IV (14:10)
--- NOTE | 2024-07-06 15:33 | W.IMMPOSTOP ---
Addendum entered and electronically signed by Dejan Benitez MD 07/06/24 15:40:
Daughter updated by phone. Plan to restart Ro Saturday 07/08
Original Note:
Surgical Immed Post Op Note
-
Primary Surgeon: Eli
Assisting: Lazara WILLIAMSON
Pre-op Diagnosis: Right spigelian hernia, (incarcerated ventral hernia)
Post-op Diagnosis: Same
Procedure Performed: Robot assisted laparoscopic repair right spigelian hernia (incarcerated ventral hernia) [Total hernia size 5cm] (rTAPP)
Anesthesia Type: GETA
Specimen / Cultures: None
Estimated Blood Loss: 5cc
Complications: None immediate
Operative Findings: 3cm x 2cm right lower quadrant hernia with incarcerated fat, inferior to this another 1cm defect with intervening 1cm fascial bridge, also incarcerated fat; 9cm x 9cm bard soft mesh.
--- NOTE | 2024-07-06 15:36 | OR.RPT ---
Operative Report
Operative Report
Primary Surgeon: Eli
Assisting: Lazara WILLIAMSON
Pre-op Diagnosis: Right spigelian hernia, (incarcerated ventral hernia)
Post-op Diagnosis: Same
Procedure Performed: Robot assisted laparoscopic repair right spigelian hernia (incarcerated ventral hernia) [Total hernia size 5cm] (rTAPP)
Anesthesia Type: GETA
Specimen / Cultures: None
Estimated Blood Loss: 5cc
Complications: None immediate
Operative Findings: 3cm x 2cm right lower quadrant hernia with incarcerated fat, inferior to this another 1cm defect with intervening 1cm fascial bridge, also incarcerated fat; 9cm x 9cm bard soft mesh.
Date of surgery: 07/06/24
Indications:� This 89M developed an incarcerated right spigelian hernia involving a loop of small bowel. This was reduced, repair was planned this admission to prevent recurrence. Robot assisted laparoscopic repair was planned.
Description of procedure:� The patient was taken to the operating room and positioned into supine position. The patient�s abdomen was prepped and draped in standard sterile fashion. A time-out was completed verifying correct patient, procedure,
site, positioning, and implants and special equipment prior to beginning this procedure.� The hernia was partially manually reduced after induction. A stab incision was made in the left upper quadrant, a Veress needle was inserted and proper
position was confirmed by aspiration and saline drop test. Following this, pneumoperitoneum was created with insufflation of carbon dioxide to 12 mmHg. Then a 8mm robotic trocar was inserted at the right upper quadrant. The laparoscope was inserted
and no injuries were identified in the area. Under direct visualization, the initial trocar was exposed and two 8mm trocars were placed inferior ad lateral to the initial trocar, a hand's breadth apart, under direct visualization.
Attention was turned to the spigelian defect. The peritoneum was incised several cm superior to the defect and a peritoneal flap was developed in transverse and caudad directions using blunt and sharp dissection and judicious electrocautery. The
defect was identified and measured as above. An additional defect was also identified as described above. Incarcerated fatty contents were reduced from both defects. The defects were closed with 0 PDS stratafix suture. A 9cm x 9cm bard soft mesh
was passed into the abdomen. It was placed against the underside of the abdominal wall and secured in place with 2-0 vicryl sutures at all four corners and under the defect. The flap was closed over the mesh and secured with 2-0 monocryl stratafix
suture. A 14g angiocath was used to decompress the preperitoneal space. The flap sealed and suctioned nicely up to the abdominal wall. The mesh did not fold nor curl.
After ensuring adequate hemostasis, the trocars were removed and the pneumoperitoneum allowed to escape. The trocar incisions were closed at the skin level using 4-0 monocryl and topical skin adhesive. All counts were correct and the patient
tolerated the procedure well and was taken to the postanesthesia care unit in stable condition.
--- NOTE | 2024-07-06 16:36 | PTCARENOTE ---
Pt returnd from PACU s/p incarcerated ventral hrnia repair. BP elevated, pt denies pain, incisions intact. pt advanced to regular diet. will closely monitor
[2024-07-06] MEDS: FLUSH (NSS) 1 FLUSH IV (19:56)
[2024-07-07] MEDS: ULTRAM 25 MG PO (02:22)
[2024-07-07 03:30] VITALS: BP 136/84
[2024-07-07 06:00] VITALS: BMI 21.1
[2024-07-07 07:22] VITALS: BP 128/77
[2024-07-07 07:40] LABS: % Basophils 0.3 % (0-2); % Immature Granulocytes 0.6 % (0-0.5); % Lymphocytes 13.5 % (20.5-51.1); % Monocytes 10.3 % (1.7-9.3); % Neutrophils 75.3 % (42.2-75.2); Absolute Immature Granulocytes 0.1 10^3/uL (0-0.05); Absolute Lymphocytes 1.1 10^3/uL (1.2-3.4); Absolute Monocytes 0.8 10^3/uL (0.1-0.6); Absolute Neutrophils 5.9 10^3/uL (1.4-6.5); Hematocrit 29.7 % (39.0-52.0); Hemoglobin 10.1 g/dL (13.0-18.0); Mean Corpuscular Hgb 34.1 pg (27.0-31.0); Mean Corpuscular Volume 100.3 fL (80.0-94.0); Mean Platelet Volume 10.2 fL (7.4-10.4); Nucleated Red Blood Cells % 0 % (-); Platelet Count 173 10^3/uL (130-400); Red Blood Cell Count 2.96 10^6/uL (4.70-6.10); Red Cell Dist. Width 14.5 % (11.5-14.5); White Blood Cell Count 7.9 10^3/uL (4.8-10.8)
--- NOTE | 2024-07-07 08:20 | W.PN.HOSP.TC ---
Addendum entered and electronically signed by Tony Torres MD 07/07/24 15:25:
Auth has been obtained, patient will be discharged today
Addendum entered and electronically signed by Tony Torres MD 07/07/24 13:12:
Awaiting placement/auth
Original Note:
Today's Communication/Plan
-
Discharge today
Assessment / Plan
Assessment / Plan
Physical Exam
General: Not in acute distress
HEENT: Moist mucous membranes
Respiratory: Clear to Auscultation Bilaterally
Cardiac: S1/S2 and Irregular Rhythm
GI: Soft, Non Distended, Normal Bowel Sounds and Other (Mild right-sided abdominal tenderness. Positive bowel sounds.) Surgical incisions clean, dry and intact.
Musculoskeletal: No Cyanosis and No Edema
Neuro: Alert. Awake.
Hematologic/Lymphatic: Other (R IJ HD cath intact. Surrounding area well-appearing.)
Assessment/Plan
Patient is an 89y M with PMH significant for ESRD on HD, GERD and hypertension who presents to ED for evaluation of abdominal pain x 24 + hours.
Right Abdominal / Spigelian Hernia status post Robot-assisted laparoscopic repair right spigelian hernia (incarcerated ventral hernia) [Total hernia size 5cm] (rTAPP) on 07/06/24
SBO secondary to the above
- Pain / nausea improved after reduction in the ED.
- Surgery evaluation for additional recommendations.
- Dr. Benitez (surgeon) requested that I consult cardiology for risk stratification for surgery -- cardiology consulted -- risk elevated but surgery necessary
- Anticipate restart Eliquis 48 hours post-op -- plan to restart Eliquis Thursday07/08/24
- Miralax, milk of mag if still constipated
- Follow-up outpatient with Dr. Benitez
ESRD on HD
- Stable. Had usual HD session on Thursday07/01/24 with no issues.
- Next HD tomorrow.
- Consulted Nephrology for dialysis
Permanent Atrial Fibrillation
- Stable. Hold Eliquis as above but resume it tomorrow.
- Cardiology consulted as per surgeon's request as above
Benign Hypertension
- BP moderate elevated in the ED - likely in part due to pain.
- Continue usual home medications with holding parameters.
- Adjust as needed.
- HD per usual schedule.
GERD / Mueller's Esophagus
- Stable. Continue daily PPI.
Seizure Disorder
- Stable. Continue current Keppra dose without changes.
DVT Prophylaxis: SCDs. Continue subq Heparin while Apixaban is being held.
Code Status: DNR
More than 30 minutes spent in discharge including
Final examination of the patient
Summarizing hospital stay
Instructions for continuing care to all relevant caregivers
Preparation of discharge records, prescriptions, and referral forms
Total time spent (in minutes): 39
Anticipated Discharge: Today
Subjective/Interval History
-
Date of Service: July 07, 2024
Patient was seen and examined. He denied any symptoms or complaints.
Objective Data
-
Labs:
Laboratory Results
07/07/24
06:34
WBC 7.9
Hgb 10.1 L
Hct 29.7 L
Plt Count 173
Sodium Pending
Potassium Pending
Chloride Pending
Carbon Dioxide Pending
BUN Pending
Creatinine Pending
Glucose Pending
Calcium Pending
Vital Signs:
Vital Signs
Temp Pulse Resp BP Pulse Ox
98.0 F 82 17 128/77 97
07/07/24 07:22 07/07/24 07:22 07/07/24 07:22 07/07/24 07:22 07/07/24 07:22
I&O
07/06/24 07/07/24 07/08/24
06:59 06:59 06:59
Intake Total 1620 / 1620 480 / 480
Balance 1620 / 1620 480 / 480
[2024-07-07 08:25] LABS: Blood Urea Nitrogen 20 mg/dl (9-20); Calcium 8.8 mg/dl (8.4-10.2); Carbon Dioxide 25 mmol/L (22-30); Chloride 99 mmol/L (98-107); Estimated Creatinine Clearance 14 ml/min; Glucose 74 mg/dl (70-99); Potassium 4.4 mmol/L (3.5-5.1); Sodium 136 mmol/L (135-145); eGFR 17.17
[2024-07-07] MEDS: PROCARDIA XL (EXTENDED RELEASE) 60 MG PO (08:25)
[2024-07-07] MEDS: KEPPRA 250 MG PO (08:25)
[2024-07-07] MEDS: HEPARIN 5000 UNITS SC (08:26)
[2024-07-07] MEDS: MIRALAX 17 GRAMS PO (08:26)
[2024-07-07] MEDS: VITAMIN D3 (cholecalciferol) 25 MCG PO (08:26)
[2024-07-07] MEDS: PROTONIX 40 MG PO (08:26)
[2024-07-07] MEDS: TRANDATE 100 MG PO (08:26)
--- NOTE | 2024-07-07 09:01 | W.PN.GS2 ---
Addendum entered and electronically signed by Kei Brooks MD 07/07/24 09:07:
Plan:
-- Hold therapeutic anticoagulation for 48 hours post-op, OK for DVT ppx
Original Note:
Today's Communication / Plan
-
-- Regular
-- Pain control: Tylenol, Tramadol
-- Miralax daily, milk of mag if no results
-- HD tomorrow scheduled
-- Dispo per primary
-- F/u outpatient with Dr. Benitez
Assessment / Plan
-
89 yo male with a h/o ESRD on HD, PAF on Eliquis (LD 07/02), and hiatal hernia/GERD p/w partial SBO secondary to a reducible spigelian hernia
POD#1 s/p robotic spigelian hernia repair with mesh
AFVSS
Labs notable for a normal WBC, stable Hb, normal electrolytes and improved renal function
Recovering well from a general surgery perspective. Recommend aggressive bowel regimen on discharge. Follow-up as an outpatient.
-- Regular
-- Pain control: Tylenol, Tramadol
-- Miralax daily, milk of mag if no results
-- HD tomorrow scheduled
-- Dispo per primary
-- F/u outpatient with Dr. Benitez
Subjective Data
-
Date of Service: July 07, 2024
No complaints. Pain well-controlled. No nausea or vomiting. Denies any flatus or BM. Afebrile.
Objective Data
-
Intake and Output
07/06/24 07/07/24 07/08/24
06:59 06:59 06:59
Intake Total 1620 / 1620 480 / 480
Balance 1620 / 1620 480 / 480
Intake:
Oral fluids 1620 / 1620 480 / 480
Other:
Number of approximated SMALL 1
amounts of urine
How many times incontinent 1
MODERATE amount urine
How many times incontinent 2
SATURATED amount urine
Number of unmeasured liquid
stools
Rectum 1
Vital Signs
Temp Pulse Resp BP Pulse Ox
98.0 F 82 17 128/77 97
07/07/24 07:22 07/07/24 07:22 07/07/24 07:22 07/07/24 07:22 07/07/24 07:22
Lab Results
07/07/24 06:34
07/07/24 06:34
Calcium 8.8 mg/dl (8.4-10.2) 07/07/24 06:34
Total Bilirubin 0.7 mg/dl (0.2-1.3) 07/03/24 00:01
AST 27 U/L (17-59) 07/03/24 00:01
ALT 17 U/L (0-50) 07/03/24 00:01
Alkaline Phosphatase 67 U/L (38-126) 07/03/24 00:01
Total Protein 7.5 g/dl (6.3-8.2) 07/03/24 00:01
Albumin 4.5 g/dl (3.5-5.0) 07/03/24 00:01
Physical Exam
-
Gen: NAD
Abd: soft, NT/ND, non-peritoneal, incisions c/d/i - no erythema, ecchymosis or drainage, no palpable hernia
Patient has a bhatt catheter: No
Patient has a central line: No
--- NOTE | 2024-07-07 09:40 | W.PN.CD ---
Today's Communication / Plan
-
Monitor for complications
Resume Eliquis when OK with surgery => surgery says hold for 48 hrs post surgery, I agree
Impression / Plan
-
Background: 89M with with permanent atrial fibrillation (on apixaban), CVA (on imaging), hypertension, GERD/Mueller's esophagus, HLD, seizure disorder, and ESRD on HD who presented to the emergency department with a chief complaint of abdominal
pain. Outpatient copper plate printer: Dr. Josue
Cardiac risk assessment
- No cardiac complications detected from robotic spigelian hernia repair with mesh on 07/06/2024
- Preop EKG and echo were stable from prior
Abdominal pain, in the setting of SBO
- Doing well after robotic spigelian hernia repair with mesh on 07/06/2024
Permanent atrial fibrillation
- Rate control with labetalol, no plans for rhythm control
- Oral Anticoagulation: Apixaban 2.5 mg twice daily (age 89, creatinine >1.5), on hold for surgical intervention, last dose 07/02/2024, resume per surgery (48 hrs after surgery)
- [id number]: score 5 (HTN, age 75 or more, CVA)
- No bridge for short hold of Eliquis
Hypertension
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
ESRD, on HD MWF, nephrology following
HLD, on rosuvastatin
Seizure disorder, on Keppra
Subjective: Denies CP or dyspnea
Physical Exam
Vital Signs/Labs
Vital Signs
Temp Pulse Resp BP Pulse Ox
98.0 F 82 17 128/77 97
07/07/24 07:22 07/07/24 07:22 07/07/24 07:22 07/07/24 07:22 07/07/24 07:22
07/06/24 07/07/24 07/08/24
06:59 06:59 06:59
Actual Weight 68.765 kg 66.723 kg
07/07/24 06:34
07/07/24 06:34
PT 14.0 Sec (11.4-14.6) 07/04/24 11:31
INR 1.05 07/04/24 11:31
APTT 33.4 Sec (23.4-35.0) 07/04/24 11:31
Physical Exam
Constitutional: No acute distress
EENT: Anicteric
Cardiovascular: Rhythm & rate is regular and Pedal edema is absent
Respiratory: Respiratory effort normal and Lungs clear to auscul.
GI: Soft and Distention absent
Neuro/Psych: Alert
Data Reviewed
-
Date of Service: July 07, 2024
[2024-07-07 11:00] VITALS: BP 127/77
[2024-07-07 12:44] VITALS: BP 122/78
--- NOTE | 2024-07-07 13:55 | CM ---
Addendum entered by Jeannine Maxwell 07/07/24 14:44:
[facility] REPORT #: [phone], FAX #: [phone]
Information given to [place] at [facility]
Original Note:
Patient daughter called and updated.
Spoke with Odessa at [facility]
CM will need to obtain auth
EMILY GRIGGS NPI #: [id number]
Dr. Yu Wild NPI #: [id number]
PLAN: [facility], pending ins approval
daughter to transport
--- NOTE | 2024-07-07 14:32 | CM ---
Called to initiate auth
Spoke with [employer]
Auth approved - start date 07/07 -NRD 07/11; clinicals to be reviewed at [phone]
Auth # [id number]
Daughter to transport
Plan - [facility]
[2024-07-07 15:12] VITALS: BP 139/81
--- NOTE | 2024-07-07 15:19 | W.PN.NEPH.PH ---
Today's Communication / Plan
-
Okay for discharge from renal standpoint
Assessment/Plan
-
IMP:
Right Abdominal / Spigelian Hernia-s/p reduction in ER
SBO secondary to the above
ESRD on HD-MWF at [place] unit through [facility]
Paroxysmal Atrial Fibrillation
Benign Hypertension
GERD / Mueller's Esophagus
Seizure Disorder
Plan:
A/w abd pain, spigelian hernia reduced in ER
Status post hernia repair yesterday in the OR.
Dialysis tomorrow outpatient as patient will be discharged
d/w pt
-
-
Date of Service: July 07, 2024
CC / HPI / ROS
-
Chief Complaint:
ESRD
History of Present Illness:
tolerated HD yesterday
bp stable, na 132
Review of Systems:
no cp or sob
no n/v or abd pain
no bm or flatus
Labs
-
Labs:
WBC 7.9 10^3/uL (4.8-10.8) 07/07/24 06:34
RBC 2.96 10^6/uL (4.70-6.10) L 07/07/24 06:34
Hgb 10.1 g/dL (13.0-18.0) L 07/07/24 06:34
Hct 29.7 % (39.0-52.0) L 07/07/24 06:34
Plt Count 173 10^3/uL (130-400) 07/07/24 06:34
Sodium 136 mmol/L (135-145) 07/07/24 06:34
Potassium 4.4 mmol/L (3.5-5.1) 07/07/24 06:34
Chloride 99 mmol/L (98-107) 07/07/24 06:34
Carbon Dioxide 25 mmol/L (22-30) 07/07/24 06:34
BUN 20 mg/dl (9-20) 07/07/24 06:34
Creatinine 3.3 mg/dL (0.7-1.3) H 07/07/24 06:34
eGFR 17.17 07/07/24 06:34
Glucose 74 mg/dl (70-99) 07/07/24 06:34
Calcium 8.8 mg/dl (8.4-10.2) 07/07/24 06:34
Albumin 4.5 g/dl (3.5-5.0) 07/03/24 00:01
Physical Exam
-
Vital Signs:
Vital Signs
Temp Pulse Resp BP Pulse Ox
98.3 F 78 17 127/77 94
07/07/24 11:00 07/07/24 11:00 07/07/24 11:00 07/07/24 11:00 07/07/24 11:00
Cardiovascular:: Regular rate and rhythm
Respiratory:: Bilateral: CTA
Lung Excursion:: Normal
Abdomen:: Nontender and Soft
Extremity Edema:: None: Bilateral:
Edward Catheter: No
--- NOTE | 2024-07-07 15:25 | W.DCSUMMARY ---
Discharge Summary
Discharge Data
Date of Admission: 07/03/24
Date of Discharge: 07/07/24
Total time spent discharging patient (in min): 39
-
Pending Results: No
Hospital Course
89 y/o male with past medical history significant for ESRD on Hemodialysis, GERD and hypertension who presented complaining of abdominal pain. Patient was found to have a right abdominal/Spigelian Hernia, as well as bowel obstruction secondary to
this. Patient was placed on a clear liquids diet and surgery was consulted. Initially, there were no plans for surgery as patient's hernia was able to be reduced. However, subsequently decision was made for hernia repair due to expected difficulty
with follow up. At the request or surgery team, cardiology was consulted for risk stratification prior to surgery. Patient was noted to be at elevated but not prohibitive risk for hernia repair. Cardiology recommended no Heparin Drip bridging.
Nephrology was consulted for dialysis. Patient did have an echocardiogram which showed per call center trainer's report 'Normal biventricular size and systolic function without regional wall motion abnormality. Mild concentric left ventricular hypertrophy.
Mildly biatrial enlargement. No significant valvular disease. Trivial pericardial effusion. No significant change since the prior study of 11/05/2020.' Electrocardiogram was noted to be stable compared to prior. On July 06, 2024, patient had 'Robot
assisted laparoscopic repair right spigelian hernia (incarcerated ventral hernia) [Total hernia size 5cm] (rTAPP)' Patient would be able to resume his home Eliquis on Monday, July 08, 2024.
Discharge Plan
-
Patient Disposition: Long Term/SNF
Discharge Diagnosis/Procedures: Robotic abdominal wall hernia repair with mesh
Right Abdominal / Spigelian Hernia status post Robot-assisted laparoscopic repair right spigelian hernia (incarcerated ventral hernia) [Total hernia size 5cm] (rTAPP) on 07/06/24
Bowel obstruction secondary to the above
ESRD on HD
Permanent Atrial Fibrillation
Benign Hypertension
GERD / Mueller's Esophagus
Seizure Disorder
Condition: Good
Diet: Other diet
Additional Diets: FOLLOW A RENAL DIALYSIS/END STAGE RENAL DISEASE DIET
Activity: No strenuous activity
Additional Activity: No heavy lifting (> 20 lbs) or strenuous activities for 4 weeks postoperatively
Bathing Restrictions: OK to Shower
Wound Care: Keep incisions clean and dry. Glue will flake off in 2 to 3 weeks. Stitches will dissolve. Use ice to the abdomen joint to reduce any bruising or swelling.
Activity Restrictions/Additional Instructions:
Call for fevers (>100.5), nausea or vomiting, worsening abdominal or groin pain, issues with urination, issues with constipation (if no bowel movement in 24 hours take MiraLAX, if no results take milk of magnesia)
Wound Care Instructions
L arm: clean with soap and water, adaptic, folded gauze and kenia change q other day and prn drainage.
Referrals:
Dejan Benitez MD [Active] - in two to four weeks (To discuss hernia repair)
Additional Discharge Medication Instructions: Resume Apixaban (Eliquis) on July 08, 2024.
Use Milk of Magnesia for constipation if no bowel movements with Polyethylene Glycol.
Prescriptions:
New
polyethylene glycol 3350 17 gram powder in packet
17 g PO DAILYPRN PRN (Reason: constipation) Qty: 1 0RF
acetaminophen 325 mg tablet
650 mg PO Q4HPRN PRN (Reason: mild pain) Qty: 1 0RF
tramadol 50 mg tablet
50 mg PO Q6HPRN PRN (Reason: severe pain/breakthrough pain) Qty: 5 0RF
Continued
albuterol sulfate 2.5 mg /3 mL (0.083 %) Solution For Nebulization
2.5 mg INHALATION Q6H PRN (Reason: SOB)
sennosides-docusate sodium [Colace 2-In-1] 8.6-50 mg Tablet
2 tab-cap PO BID
folic acid-vit B6-vit B12 2.5-25-1 mg Tablet
1 tab PO HS
nifedipine [Procardia XL] 60 mg Tablet Extended Release 24hr
60 mg PO DAILY
levetiracetam 250 mg Tablet
250 mg PO Q12H
labetalol 100 mg Tablet
100 mg PO BID
albuterol sulfate 90 mcg/actuation Hfa Aerosol Inhaler
2 puff INHALATION 4XD PRN (Reason: SOB)
cholecalciferol (vitamin D3) 25 mcg (1,000 unit) Tablet
25 mcg PO DAILY
esomeprazole magnesium 20 mg Tablet,Delayed Release (Dr/Ec)
20 mg PO QPM
Held
apixaban 2.5 mg Tablet
2.5 mg PO BID
Hold Instructions: Resume on 07/08/24.
Discharge Orders:
Discharge Patient (As Directed); Ordered 07/07/24
Ordered By: Tony Torres
Discharge Date and Time
Discharge Date/Time: 07/07/24 17:00
Print Language: EGYPTIAN
== END 2024-07-07 17:00 | DRG 353 ==
LOC: 2 SOUTH 04:47
PROVIDERS: Emergency Medicine; Internal Medicine Nephrology; Registered Nurse; ADMITTING PHYSICIAN Hospitalist; ATTENDING PHYSICIAN Hospitalist; CONSULT PHYSICIAN Internal Medicine; CONSULT PHYSICIAN Internal Medicine Cardiovascular Disease; CONSULT PHYSICIAN Surgery; EMERGENCY PHYSICIAN Emergency Medicine
PROC: 5A1D70Z Performance of Urinary Filtration, Intermittent, Less than 6 Hours Per Day (ICD-10-PCS; 2024-07-04)
PROC: 0WUF4JZ Supplement Abdominal Wall with Synthetic Substitute, Percutaneous Endoscopic Approach (ICD-10-PCS; 2024-07-06)
PROC: 0DQV4ZZ Repair Mesentery, Percutaneous Endoscopic Approach (ICD-10-PCS; 2024-07-06)
PROC: 8E0W4CZ Robotic Assisted Procedure of Trunk Region, Percutaneous Endoscopic Approach (ICD-10-PCS; 2024-07-06)
DX: K43.6 Other and unspecified ventral hernia with obstruction, without gangrene (principal); N18.6 End stage renal disease; I12.0 Hypertensive chronic kidney disease with stage 5 chronic kidney disease or end stage renal disease; I48.21 Permanent atrial fibrillation; Z99.2 Dependence on renal dialysis; K21.9 Gastro-esophageal reflux disease without esophagitis; K22.70 Barrett's esophagus without dysplasia; Z88.8 Allergy status to other drugs, medicaments and biological substances; Z79.01 Long term (current) use of anticoagulants; G40.909 Epilepsy, unspecified, not intractable, without status epilepticus; Z66 Do not resuscitate; E78.00 Pure hypercholesterolemia, unspecified; Z82.49 Family history of ischemic heart disease and other diseases of the circulatory system; I51.7 Cardiomegaly; Z86.73 Personal history of transient ischemic attack (TIA), and cerebral infarction without residual deficits; Z79.899 Other long term (current) drug therapy; H91.90 Unspecified hearing loss, unspecified ear
CPT/HCPCS: 74177; 80048; 80053; 85025; 85027; 85610; 85730; 86850; 86900; 86901; 87070; 93005; 93306; 94640; 96374; 97163; 97530; 99285; C1781; G0257; P9047; Q9967